=== PATIENT | female | born 1960 | race Caucasian/White ===

== ENCOUNTER 2017-07-29 08:05 | Inpatient (IN) | payer BC ==
--- NOTE | 2017-07-29 08:33 | EDPHY ---
HPI/HX/ROS/PE/MDM Narrative: CHIEF COMPLAINT: Nausea and vomiting post-op HISTORY OF PRESENT ILLNESS: The patient is a 57 y/o female arriving with her complaining of nausea and vomiting 3 days after a left rotator cuff surgery. She was under general anesthesia and had a local nerve block during the surgery. On the second day home she started taking Oxycodone for pain, but within a few hours she began feeling nauseated and has since vomited a few times. She called the orthopedist office Tuesday and they switched her pain medication to Tramadol and prescribed Zofran plus a Phenergan suppository for nausea. She has been taking the Tramadol and took a dose of Zofran yesterday, but did not try the Phenergan. Her pain is currently manageable, but she still feels nauseated. She has not eaten much since symptom onset. She has had some chills and mild dyspnea recently and has not been moving around much since the surgery. She has not noticed redness, warmth, or pus at the surgical sites. She has a post operative visit scheduled for Tuesday, 3 days from today. No history of diabetes, hypertension, blood clots. No fever, leg swelling or pain, chest pain, palpitations, vomiting, diarrhea, urinary complaints, headache, lightheadedness. REVIEW OF SYSTEMS: Aside from elements discussed in the HPI, a comprehensive 10-point review of systems was reviewed and is negative. PAST MEDICAL HISTORY: Left rotator cuff and biceps tendon surgery - Dr. Snider; remote history of colitis; hernia repair SOCIAL HISTORY: at bedside. Lives in [place]. PCP: Adair Plata VITAL SIGNS: Reviewed by me GENERAL: Well-developed, well-nourished, seems tired. No respiratory distress noted. HEENT: Atraumatic. Eyes: No icterus, no injection. Mouth: petechia on palate from vomiting, moist mucous membranes. No erythema or lesions. Neck: supple with no adenopathy. LUNGS: Clear to auscultation bilaterally, no wheezes, rhonchi or rales. CARDIAC: Bradycardic rate and rhythm, no rubs, murmurs or gallops. ABDOMEN: Soft, nontender, nondistended, bowel sounds normal. BACK: No CVA tenderness. EXTREMITIES: Left arm in sling, small incision top of left shoulder, surgical sites are clean, dry, and intact, ROM deferred. Other extremities show no trauma , no edema, and normal ROM. NEURO: Alert and oriented, grossly nonfocal. SKIN: Warm and dry, no rash. PSYCHIATRIC: Normal mentation, no agitation. Portions of this note were transcribed by a medical numerical control operator. I personally performed a history, physical exam, medical decision making, and confirmed accuracy of information the transcribed note. ED Course: This is a 57 y/o female who is 3 days post-op from a left rotator cuff repair and presents today with nausea and vomiting that began after using Oxycodone for postsurgical pain. Her orthopedist switched her to Tramadol and prescribed Zofran PO and Phenergan suppositories, but she is only using minimal doses of Zofran for nausea. No signs of infectious process on exam. Plan for IV, labs, EKG, and symptom management. 1L IV NS, 4mg IV Zofran, and 25mg IV Benadryl ordered. The 12 lead EKG was interpreted by myself. Sinus bradycardia rate 47. See hard copy and/or "tracemaster" electronic copy for interpretation. 0945: Patient continues to be nauseated on reassessment. 0.5mg IV Ativan and additional 4mg IV Zofran ordered. 1015: Patient walked to the bathroom and upon returning her SpO2 was around 75% . Plan for chest x-ray to evaluate for pneumonia or other respiratory cause and chest CTA. Due to seafood allergy, will premedicate for contrast with 25mg IV Benadryl and 125mg IV Solumedrol. Chest x-ray: small bibasilar effusions and consolidations. Chest CTA: CHF, no PE. Troponin and BNP ordered to evaluate for heart strain. 1410: Reassessed patient and discussed work up. She continues to complain of nausea. Pulse ox on room air is 78-80%. Patient will be admitted to the hospital. Suspect a significant portion of his hypoxemia is related to atelectasis, however, cardiac failure should be evaluated. Patient's course was discussed with Yana Moreno MD. Patient will be admitted to PCU. 1450: BNP is 223. Troponin is normal. - Data Points Imaging Results: Imaging Impressions Chest/Thorax CTA 07/29/17 10:14 Impression: 1. Motion limited study with no visible pulmonary embolus. 2. Cardiomegaly with small bilateral pleural effusions and interlobular septal thickening, compatible with fluid overload/CHF. 3. Basilar atelectasis. 4. Additional findings as above. Findings discussed with Dr. Bridget Barton on July 29, 2017 at 1401 hours. Chest X-Ray 07/29/17 10:15 Impression: Small to moderate bilateral pleural effusions and bibasilar consolidation, favor atelectasis rather than pneumonia. Imaging: Discussed imaging studies w/ orthopedically impaired teacher Radiologist, I viewed and interpreted images myself Laboratory Results: Laboratory Results 07/29/17 08:25 07/29/17 08:25 07/29/17 07/29/17 07/29/17 09:25 08:25 08:25 WBC 7.66 10^3/uL 10^3/uL (3.80-9.50) RBC 4.12 10^6/uL L 10^6/uL (4.18-5.33) Hgb 13.0 g/dL g/dL (12.6-16.3) Hct 37.7 % L % (38.0-47.0) MCV 91.5 fL fL (81.5-99.8) MCH 31.6 pg pg (27.9-34.1) MCHC 34.5 g/dL g/dL (32.4-36.7) RDW 12.1 % % (11.5-15.2) Plt Count 186 10^3/uL 10^3/uL (150-400) MPV 9.2 fL fL (8.7-11.7) Neut % (Auto) 78.7 % H % (39.3-74.2) Lymph % (Auto) 11.9 % L % (15.0-45.0) [place] % (Auto) 8.0 % % (4.5-13.0) Eos % (Auto) 0.9 % % (0.6-7.6) Baso % (Auto) 0.1 % L % (0.3-1.7) Nucleat RBC Rel Count 0.0 % % (0.0-0.2) Absolute Neuts (auto) 6.03 10^3/uL 10^3/uL (1.70-6.50) Absolute Lymphs (auto) 0.91 10^3/uL L 10^3/uL (1.00-3.00) Absolute Monos (auto) 0.61 10^3/uL 10^3/uL (0.30-0.80) Absolute Eos (auto) 0.07 10^3/uL 10^3/uL (0.03-0.40) Absolute Basos (auto) 0.01 10^3/uL L 10^3/uL (0.02-0.10) Absolute Nucleated RBC 0.00 10^3/uL 10^3/uL (0-0.01) Immature Gran % 0.4 % % (0.0-1.1) Immature Gran # 0.03 10^3/uL 10^3/uL (0.00-0.10) Sodium 141 mEq/L mEq/L (135-145) Potassium 4.4 mEq/L mEq/L (3.5-5.2) Chloride 102 mEq/L mEq/L (97-110) Carbon Dioxide 29 mEq/l mEq/l (22-31) Anion Gap 10 mEq/L mEq/L (8-16) BUN 12 mg/dL mg/dL (7-23) Creatinine 0.8 mg/dL mg/dL (0.6-1.0) Estimated GFR > 60 Glucose 90 mg/dL mg/dL (70-100) Calcium 8.9 mg/dL mg/dL (8.5-10.4) Troponin I < 0.012 ng/mL ng/mL (0.000-0.034) NT-Pro-B Natriuret Pep 223 pg/mL H pg/mL (0-125) Medications Given: Discontinued Medications Acetaminophen (Tylenol) 1,000 mg PO EDNOW ONE Stop: 07/29/17 09:15 Last Admin: 07/29/17 09:22 Dose: 1,000 mg Diphenhydramine HCl (Benadryl Injection) 25 mg IVP EDNOW ONE Stop: 07/29/17 08:39 Last Admin: 07/29/17 08:48 Dose: 25 mg Diphenhydramine HCl (Benadryl Injection) 25 mg IVP EDNOW ONE Stop: 07/29/17 10:15 Last Admin: 07/29/17 10:22 Dose: 25 mg Sodium Chloride (Ns) 1,000 mls @ 0 mls/hr IV ONCE ONE; Wide Open PRN Reason: Protocol Stop: 07/29/17 08:42 Last Admin: 07/29/17 08:46 Dose: 1,000 mls Lorazepam (Ativan Injection) 0.5 mg IVP ONCE ONE Stop: 07/29/17 09:47 Last Admin: 07/29/17 10:07 Dose: 0.5 mg Methylprednisolone Sodium Succinate (Solu-Medrol) 125 mg IVP EDNOW ONE Stop: 07/29/17 10:15 Last Admin: 07/29/17 10:22 Dose: 125 mg Ondansetron HCl (Zofran) 4 mg IVP EDNOW ONE Stop: 07/29/17 08:43 Last Admin: 07/29/17 08:47 Dose: 4 mg Ondansetron HCl (Zofran) 4 mg IVP EDNOW ONE Stop: 07/29/17 09:48 Last Admin: 07/29/17 10:07 Dose: 4 mg General Initial Vital Signs: Initial Vital Signs Temperature (C) 37.1 C 07/29/17 08:10 Heart Rate 47 L 07/29/17 08:10 Respiratory Rate 17 07/29/17 08:10 Blood Pressure 128/74 H 07/29/17 08:10 O2 Sat (%) 93 07/29/17 08:10 O2 Delivery Mode Nasal Cannula O2 (L/minute) 2 Allergies/Adverse Reactions: prochlorperazine edisylate [From Compazine] Allergy (Severe, Verified 06/22/11 16:51) Anaphylaxis Sulfa (Sulfonamide Antibiotics) Allergy (Severe, Verified 06/23/11 09:52) SWELLING TO LIPS AND BODY sulfasalazine [From Azulfidine] Allergy (Severe, Verified 06/23/11 09:52) SWELLING TO LIPS AND BODY prochlorperazine maleate [From Compazine] Allergy (Verified 02/21/11 09:38) SHELL FISH Allergy (Severe, Uncoded 06/23/11 09:52) SEVERE INTESTINAL PROBLEMS LACTOSE INTOL Allergy (Intermediate, Uncoded 06/23/11 09:52) Diarrhea Home Medications: Medication Instructions Recorded Cyanocobalamin/Cobamamide [Vitamin 1 each SL DAILY 07/29/17 B-12 5,000 Mcg Tab Sl] FLUoxetine HCL [Fluoxetine HCl] 40 mg PO DAILY 07/29/17 Naproxen [Naprosyn] 500 mg PO BID 07/29/17 Ondansetron Odt [Zofran Odt 4 mg 4 mg PO Q6 PRN 07/29/17 (*)] traMADol [Ultram 50 mg (*)] 50 mg PO Q6 07/29/17 Departure - Departure Disposition: [facility] Inpatient Acute Clinical Impression: Hypoxemia Nausea and vomiting Qualifiers: Vomiting type: unspecified Vomiting Intractability: non-intractable Qualified Code(s): R11.2 - Nausea with vomiting, unspecified Dyspnea Qualifiers: Dyspnea type: shortness of breath Qualified Code(s): R06.02 - Shortness of breath Condition: Fair Report Scribed for: Bridget Barton Report Scribed by: Erica Valdovinos Date of Report: 07/29/17 Time of Report: 08:37
[2017-07-29 08:34] LABS: PLATELET COUNT 186 10^3/uL (150-400)
--- NOTE | 2017-07-29 08:38 | CPEKG ---
Heart Rate: 47 RR Interval: 1277 P-R Interval: 156 QRSD Interval: 84 QT Interval: 484 QTC Interval: 428 P [place]: 24 QRS [place]: 21 T Wave [place]: 19 EKG Severity - OTHERWISE NORMAL ECG - EKG Impression: SINUS BRADYCARDIA Electronically Signed By: Bridget Barton 29-Jul-2017 16:19:23
[2017-07-29] MEDS ORDERED: NS 1,000 ML IV ONE (08:41)
[2017-07-29] MEDS ORDERED: ONDANSETRON 4 MG/2 ML VIAL IVP ONE ×2 (08:42→09:47)
[2017-07-29] MEDS ORDERED: ACETAMINOPHEN 500 MG TAB PO ONE (09:14)
[2017-07-29] MEDS ORDERED: LORazepam 2 MG/ML INJ IVP ONE (09:46)
[2017-07-29] MEDS ORDERED: methylPREDNISolone SOD SUCC 125 MG/2 ML VIAL IVP ONE (10:14)
[2017-07-29] MEDS ORDERED: methylPREDNISolone SOD SUCC 125 MG/2 ML VIAL ONE (10:15)
[2017-07-29] MEDS ORDERED: IOPAMIDOL (ISOVUE 370) 100 ML BTL IV ONE (10:25)
--- NOTE | 2017-07-29 15:08 | ASMTLACE ---
ANG Acuity / Level of Answers: Yes Care: Did the patient have an inpatient admission? # of Emergency department Answers: 1-2 visits in the last 6 months Score: 4 Date Signed: 07/29/2017 03:08 PM Electronically Signed By:Milena Jeffrey RN
[2017-07-29] MEDS ORDERED: FAMOTIDINE 20 MG in NS 100 ML IV ONE (16:09)
[2017-07-29] MEDS ORDERED: ONDANSETRON 4 MG/2 ML VIAL IVP PRN (16:09)
[2017-07-29] MEDS ORDERED: ONDANSETRON DISINTEGRATING 4 MG TAB PO PRN (16:09)
[2017-07-29] MEDS ORDERED: traMADol 50 MG TAB PO PRN (16:09)
[2017-07-29] MEDS ORDERED: FUROSEMIDE 20 MG/2 ML VIAL IVP ONE (16:22)
--- NOTE | 2017-07-29 16:54 | GHP ---
[f rep st] HISTORY AND PHYSICAL DATE OF ADMISSION: 07/29/2017 CHIEF COMPLAINT: Nausea, vomiting, and shortness of breath. HISTORY OF PRESENT ILLNESS: The patient is a 57-year-old female with a history of recent left shoulder surgery, who presented to the emergency department with nausea, vomiting, shortness of breath. She had elective shoulder surgery 3 days prior to admission with Dr. Snider. She went home that same day with oral opioids for pain control. She states she was taking oxycodone, but developed nausea and vomiting. She discussed this with her surgeon and was changed to tramadol. She has had very little oral intake due to her ongoing nausea. Even with tramadol, her symptoms persist. She notes she is very sensitive to medications. She also endorses shortness of breath, as well as orthopnea. This has been present since her surgery. She denies chest pain or pressure. She has no prior history of cardiac or pulmonary problems. In the emergency department, chest x-ray revealed bilateral pleural effusions and possibly atelectasis. A CT pulmonary angiogram was negative for pulmonary embolism, though again showed small bilateral pleural effusions with interlobular septal thickening consistent with fluid overload. Her BNP is not elevated. She was found to be hypoxemic on room air to 80%. Also of note, she has mild bradycardia. She received a total of 8 mg of IV Zofran, as well as IV Benadryl, lorazepam and 125 mg of IV Solu-Medrol. She was admitted to the hospital for further management. PAST MEDICAL/SURGICAL HISTORY: 1. Depression/anxiety. 2. Possible history of ulcerative colitis. 3. Elective left shoulder surgery. MEDICATIONS: Please see [facility] for completed outpatient medication list. ALLERGIES: Prochlorperazine, sulfa, sulfasalazine, shellfish, and lactose intolerance. SOCIAL HISTORY: The patient lives independently. She denies alcohol or tobacco use. She describes herself as an endurance athlete. FAMILY HISTORY: Reviewed and noncontributory. REVIEW OF SYSTEMS: A 10-point review of systems was performed and was negative , except as per HPI. OBJECTIVE: VITAL SIGNS: Temperature is 36.8, blood pressure 125/62, heart rate 47, respiratory rate 18. She is 92% on 2 L oxygen by nasal cannula. GENERAL: The patient is awake, alert, and oriented, in no acute distress. HEENT: Head is atraumatic, normocephalic. Pupils equal, round, reactive to light. Extraocular movements intact. Oropharynx is clear. Mucous membranes are moist. NECK: Supple. There is no JVD. HEART: Regular rate and rhythm, without murmur. LUNGS: Diminished breath sounds at the bases with faint bibasilar crackles, otherwise clear to auscultation. ABDOMEN: Soft, nondistended. There is mild tenderness to palpation in the epigastrium and right upper quadrant. There is no rebound, rigidity, or guarding. Normoactive bowel sounds are present. EXTREMITIES: Without cyanosis, clubbing, or edema. NEUROLOGIC: Exam is grossly nonfocal. LABORATORY DATA: CBC reveals a normal white blood cell count of 7.6, hemoglobin 13. Platelets are normal at 186. Basic metabolic panel is completely normal, with a normal creatinine of 0.8. Troponin is negative. BNP is 223. EKG shows sinus bradycardia with low voltage throughout all leads, inverted T- wave in lead III. Otherwise no ST-segment or T-wave changes suggestive of acute ischemia. Chest x-ray showed bilateral pleural effusions, possible atelectasis. CT pulmonary angiogram is negative for pulmonary embolism, showed, again, small bilateral pleural effusion with interlobular septal thickening consistent with fluid overload or CHF. ASSESSMENT/PLAN: The patient is a 57-year-old female who presented to the emergency department 3 days postop from elective shoulder surgery, with nausea, vomiting, and shortness of breath. # Acute hypoxemic respiratory failure. She is requiring 2 L of oxygen per minute. She has bilateral pleural effusions and a normal BNP. I do suspect some element of volume overload. I wonder if she had more pronounced bradycardia perioperatively that was contributory. Will give a dose of intravenous Lasix now and assess her response. Likely continue diuresis tomorrow. At this time, I do not think there is an indication for thoracentesis. An echocardiogram is ordered. # Bradycardia. She is an endurance athlete. There is no evidence of shock. Will monitor on telemetry. No interventions are planned with a heart rate in the 40s, though if this drifts into the 30s or lower, we would consider atropine. As above, an echo is pending. # Nausea and vomiting. This may be a side effect from opioids. Consider biliary etiology. Will add on LFTs. Also consider peptic ulcer disease. Start Pepcid b.i.d. and hold anti-inflammatories for now. If her symptoms are not improving, could send H pylori fecal antigen versus a serum antibody and treat if positive. # Constipation. KUB neg for obstruction. Bowel regimen ordered. # Recent shoulder surgery, postop day 3. Will schedule Tylenol for pain control with p.r.n. tramadol and attempt to avoid opioids. As above, I am also holding anti-inflammatories given her acute nausea and vomiting. # Code status: Patient is full code. # Deep vein thrombosis prophylaxis. The patient is moderate risk with her recent surgery. Will give Lovenox. # Disposition: Patient admitted to observation status. If her symptoms improve, she may be a candidate for discharge in the morning. Otherwise, may change to inpatient. /[id number]/MODL MTDD
[2017-07-29] MEDS: ACETAMINOPHEN 500 MG TAB PO SCH ×2 (17:28→23:45)
[2017-07-29] MEDS ORDERED: FAMOTIDINE 20 MG/NACL 50 ML IV ONE (17:30)
[2017-07-29] MEDS ORDERED: POLYETHYLENE GLYCOL 3350 17 GM PKT PO PRN (23:14)
[2017-07-29] MEDS ORDERED: MAGNESIUM HYDROXIDE 30 ML UDCUP PO PRN (23:14)
[2017-07-29] MEDS ORDERED: LACTULOSE 20 GM/30 ML UDCUP PO PRN (23:14)
[2017-07-29] MEDS ORDERED: BISACODYL 10 MG SUPP PR PRN (23:14)
[2017-07-30] MEDS: ENOXAPARIN 40 MG/0.4 ML SYR SC SCH (08:35)
[2017-07-30] MEDS: ACETAMINOPHEN 500 MG TAB PO SCH ×3 (08:35→23:38)
[2017-07-30] MEDS: FLUoxetine 20 MG CAP PO SCH (08:36)
[2017-07-30] MEDS ORDERED: NON-FORMULARY NEW DRUG (Fluoxetine Hcl [Fluoxetine Hcl] 40 MG) PO SCH (09:00)
[2017-07-30] MEDS: SENNOSIDES/DOCUSATE SODIUM TAB PO SCH ×2 (10:29→21:57)
[2017-07-30] MEDS ORDERED: FUROSEMIDE 20 MG/2 ML VIAL IVP ONE ×2 (11:26→17:00)
--- NOTE | 2017-07-30 13:47 | ASMTCMCOM ---
CM Note CM Note Notes: Chart reviewed.55 year old female s/p shoulder surgery 4 days ago admitted via ED for compalints of N/V. She lives independent. No needs identified at present. CM available should needs arise. Date Signed: 07/30/2017 01:46 PM Electronically Signed By:Julissa Rodgers RN
--- NOTE | 2017-07-30 14:51 | HOSPPROG ---
Hospitalist Progress Note Assessment/Plan: * fluid overload/pulm edema after recent shoulder surgery * cont iv lasix today and tomorrow * echo pending *nausea * d/t pain meds * resolving *bradycardia * says she has been like this her whole life and is really well conditioned Subjective: feels better but still feel breathing is contricted. nausea is better Objective: Vital Signs Temp Pulse Resp BP Pulse Ox 36.8 C 46 L 12 97/42 L 96 07/30/17 12:23 07/30/17 12:23 07/30/17 12:23 07/30/17 12:23 07/30/17 12:23 07/29/17 07/30/17 07/31/17 05:59 05:59 06:59 Intake Total 1480 Output Total 1300 900 Balance 180 -900 - Physical Exam Constitutional: no apparent distress, appears nourished, not in pain Eyes: anicteric sclera, EOMI Ears, Nose, Mouth, Throat: moist mucous membranes, hearing normal Cardiovascular: regular rate and rhythym, no murmur, rub, or gallop Respiratory: no respiratory distress, no rales or rhonchi, clear to auscultation Skin: warm Neurologic: AAOx3 Psychiatric: interacting appropriately, not anxious, not encephalopathic, thought process linear ICD10 Worksheet Patient Problems: Problems Problem Status Onset Dyspnea Acute Hypoxemia Acute Nausea and vomiting Acute
--- NOTE | 2017-07-30 14:59 | ECHO ---
[email or web address] [address] Main: [phone] Fax: [email or web address] Echocardiogram Name: NICHOLE ORR MR#: [id number] Study Date: 07/30/2017 Study Time: 10:43 AM Date of : 1960 Age: 57 year(s) Height: 172.7 cm (68 in.) Weight: 65.77 kg (145 lb.) BSA: 1.78 m2 Gender: Female Examination: Echo Indication: Fluid overload, Pleural Effusion, Eval LV Fx Image Quality: Contrast: Requested by: Yana Moreno BP: 101 mmHg/58 mmHg Heart Rate: Rhythm: Sinus bradycardia Indication: Fluid overload, Pleural Effusion, Eval LV Fx Procedure Staff Candlemaker: Brayan Jack RDCS Reading Physician: Librado Lincoln MD Requesting Provider: Conclusions: Normal global systolic LV function. Diastolic dysfunction is present. . Measurements: Chambers Valvular Assessment AV/MV Valvular Assessment TV/PV Normal Normal Normal Name Value Range Name Value Range Name Value Range Ao Ariana (MM): 2.6 cm (2.2 cm-3.7 AV Vmax: 1.14 m/s (1 m/s-1.7 PV Vmax: 0.77 m/s (0.6 m/s-0.9 cm) m/s) m/s) IVSd (2D): 0.8 cm (0.6 cm-1.1 AV maxP mmHg ( - ) PV PGmax: 2 mmHg ( - ) cm) LVOT Vmax: 0.73 m/s (0.7 m/s-1.1 LVDd (2D): 5.0 cm (3.9 cm-5.3 m/s) cm) MV E Vmax: 0.65 m/s ( - ) LVDs (2D): 3.0 cm (2.1 cm-4 MV A Vmax: 0.72 m/s ( - ) cm) MV E/A: 0.90 ( - ) LVPWd (2D): 0.9 cm ( - ) LVEF (2D): 70 (>=54 %) Continued Measurements: Chambers Name Value LADs Lon.9 cm LA Area: 16.1 cm2 Findings: Left Ventricle: Normal size left ventricle. No LV hypertrophy. Normal global systolic LV function. EF is 70 %. No regional wall motion abnormality. Diastolic dysfunction is present. . Patient: NICHOLE ORR Study Date: 07/30/2017 Page 1 of 2 10:43 AM Right Ventricle: Normal size right ventricle. Left Atrium: The left atrium is normal in size. Right Atrium: The right atrium is normal in size. Mitral Valve: The mitral valve is normal in appearance and function. Aortic Valve: The aortic valve is normal in appearance and function. There is no aortic valve regurgitation. Tricuspid Valve: The tricuspid valve is normal in appearance and function. Pulmonic Valve: The pulmonic valve is normal in appearance and function. Aorta: The aorta is normal. Pericardium: No pericardial effusion. Exam Comments: Post Left Shoulder surgery, Echo performed in chair. (No Signature Object) Patient: NICHOLE ORR Study Date: 07/30/2017 Page 2 of 2 10:43 AM [id number]
--- NOTE | 2017-07-30 15:18 | PDMN ---
Medical Necessity Medical necessity: C/M review: Patient meets INPT criteria under [facility] [place] Respiratory failure GRG (Acute pulmonary edema): Acute and persistent - fluid overload and pulmonary edema on CXR, CT angiogram, hypoxia - 07/29/2017 86% RA sat , 07/30/2017 84% RA sat, nausea, requiring IV Lasix x 1 07/30/2017, ongoing IV Lasix QD starting -18, cardiac monitoring, pulse oximetry, supplemental O2 , comorbid recent shoulder surgery prior to this admission. MD anticipates > 2 MN LOS for ongoing med nec for eval and TX of above.
[2017-07-31] MEDS: FLUoxetine 20 MG CAP PO SCH (08:44)
[2017-07-31] MEDS: ACETAMINOPHEN 500 MG TAB PO SCH (08:44)
[2017-07-31] MEDS: ENOXAPARIN 40 MG/0.4 ML SYR SC SCH (08:44)
[2017-07-31] MEDS: SENNOSIDES/DOCUSATE SODIUM TAB PO SCH (08:59)
[2017-07-31] MEDS ORDERED: FUROSEMIDE 20 MG/2 ML VIAL IVP SCH (09:00)
[2017-07-31] MEDS ORDERED: IPRATROPIUM/ALBUTEROL 3 ML DEYVIAL ONE (11:14)
[2017-07-31 13:07] VITALS: BP 92/58; PULSE 47; RESP 12; TEMP 98.7
[2017-07-31 13:11] VITALS: O2SAT 93
--- NOTE | 2017-07-31 16:07 | PDCONSULT ---
Safety Sealer Note: Spoke with patient about the findings on the echocardiogram - specifically the finding of diastolic dysfunction. Patient without prior history of cardiac pathology. Heart rates are generally <55 bpm for this patient. Patient did voice that her weights post surgery were 15-20 pounds higher than in recent past. Fluid was noted to the lungs (atelectasis) as well. Doubtful that the newly noted diastolic dysfunction precipitated the "heart failure" findings. Would have more concerns about fluid overload. Diastolic dysfunction is generally made worse by accelerate (and irregular) heart rates - neither of which the patient has had. Patient should follow up with PCP as scheduled. Would continue to ambulate as tolerated. Aggressive use of Incentive Spirometer (non medial means to diminish atelectasis). Cardiology follow up in the outpatient setting can be arranged contingent on symptomatology or questions.
== END 2017-07-31 16:50 | disposition home or self-care (01) | DRG 189 ==
LOC: F2W 16:26 → OBSVTOIN 07-30 14:47
PROVIDERS: ADMIT Hospitalist; ATTEND Hospitalist
DX: J96.01 Acute respiratory failure with hypoxia (principal); I50.30 Unspecified diastolic (congestive) heart failure; E87.70 Fluid overload, unspecified; R11.2 Nausea with vomiting, unspecified; R00.1 Bradycardia, unspecified; F41.8 Other specified anxiety disorders; Z98.890 Other specified postprocedural states; K59.00 Constipation, unspecified
CPT/HCPCS: 96374; 97116-GP; 97161-GP; G0378; J1200; J1650; J1940; J2060; J2405; J2930; Q9967